=== PATIENT | female | born 1995 | race Caucasian/White ===

== ENCOUNTER 2016-10-15 01:51 | Emergency (ER) | payer OTHER ==
[2016-10-15] MEDS ORDERED: ALUMINUM/MAGNESIUM SUSP 30 ML UDC ONE (02:14)
[2016-10-15] MEDS ORDERED: LIDOCAINE HCL 2% VISC SOLN 20 ML UDC ONE (02:15)
[2016-10-15] MEDS ORDERED: SUCRALFATE 1 GM TAB ONE (02:48)
[2016-10-15] MEDS ORDERED: PANTOprazole SOD 40 MG TAB ONE (03:30)
--- NOTE | 2016-10-15 03:34 | EMERGENCY ROOM VISIT NOTE ---
History First contact with patient: 03:07 Chief Complaint: BACK PAIN Stated Complaint: LOWER THROAT PAIN AND UPPER BACK PAIN History of Present Illness The patient is a 21 year old female who presents to the Emergency Room with complaints of throat burning and discomfort for the past few hours after eating pizza. Patient tried tums and no improvement of symptoms. Patient denies dyspnea, fever, chills, cough, congestion, sore throat, headache, neck status, abdominal pain, vomiting, diarrhea. Review of Systems See HPI for pertinent positives & negatives. A total of 10 systems reviewed and were otherwise negative. Past Medical/Surgical History Asthma Social History Smoking Status: Never Smoker Smokeless Tobacco Use: No Alcohol Use: occasionally Drug Use: none Current/Historical Medications No Active Prescriptions or Reported Meds Allergies Coded Allergies: No Known Allergies (Unverified , 12/29/15) Physical Exam Physical Exam VITALS: Vitals are noted on the nurse's note and reviewed by myself. Vital signs stable. GENERAL: Pleasant female, in no acute distress, nondiaphoretic, well-developed well-nourished. SKIN: The skin was without rashes, erythema, edema, or bruising. There is no tenting of the skin. Capillary reflex less than 2 seconds. HEAD: Normocephalic atraumatic. EARS: External auditory canals clear, tympanic membranes pearly moreau without erythema or effusion bilaterally. EYES: Pupils equal round and reactive to light and accommodation. Conjunctivae without injection, sclerae without icterus. Extraocular movements intact. NOSE: Patent, turbinates without inflammation or discharge. MOUTH: Mucous membranes moist. Pharynx without erythema or exudate. Uvula midline. Airway patent. Tongue does not deviate. NECK: Supple without nuchal rigidity. No lymphadenopathy. No thyromegaly. Cervical spine is nontender. No JVD. HEART: Regular rate and rhythm without murmurs gallops or rubs. LUNGS: Clear to auscultation bilaterally without wheezes, rales or rhonchi. No dullness to percussion. No retractions or accessory muscle use. ABDOMEN: Positive bowel sounds x 4. Normal tympanic percussion. Soft, nontender, without masses or organomegaly. Salter sign negative. No guarding or rebound tenderness. MUSCULOSKELETAL: No muscle atrophy, erythema, or edema noted. NEURO: Patient was alert and oriented to person place and time. Normal sensation to light and sharp touch. No focal neurological deficits. Medical Decision & Procedures ED Course Prior records/ancillary studies reviewed. Triage Nursing notes reviewed. The patient's history was concerning for chest pain. Differential diagnosis: Etiologies such as cardiac ischemia, aortic dissection, pulmonary embolism, pneumonia, pneumothorax, musculoskeletal, infections, pericarditis, myocarditis , esophageal rupture, gastrointestinal, as well as others were entertained. Physical examination: As above. ER treatment provided: GI cocktail, Carafate, Protonix On reassessment the patient felt better. Diagnostic interpretation by me: The electrocardiogram was negative for pathologic change. Normal sinus, normal intervals, no acute ST-T wave changes. Impression normal sinus rhythm interpreted by myself The labs revealed negative carotid. Stable H&H. Negative hCG Imaging studies: Chest x-ray with no acute consolidation, pneumothorax or free air. Patient is wearing her cross. Interpreted by myself Exam and history seem consistent with reflux. Patient felt much better after being medicated as above. She is advised to take Protonix daily for next 2 weeks and to follow-up family care in a few days or here in the ER sooner for chest pain, difficulty breathing, black or blood in her stool, worsening signs or symptoms or as needed. Patient did not have acute abdomen on exam. She is well-appearing. Normal EKG. Negative pronator. Negative hCG. By the evaluation outlined above emergent etiologies such as cardiac ischemia, aortic dissection, pulmonary embolism, pneumonia, pneumothorax, infections, pericarditis, myocarditis, gastrointestinal, as well as others were deemed relatively unlikely. The pt informed about the findings as listed above. All questions were answered and pleased with the treatment. Return instructions were outlined and the patient was discharged in stable condition. Outpatient prescription management: Protonix Referral: The patient was referred back to primary care physician for follow-up in 2 to 3 days for a recheck of the current condition. Case reviewed with my attending. Medical Decision As above Impression Primary Impression: GERD (gastroesophageal reflux disease) Departure Information Dispostion Home / Self-Care Condition GOOD Prescriptions No Active Prescriptions or Reported Meds Referrals No Doctor, Assigned (PCP) Patient Instructions My [facility] Additional Instructions Protonix 40 m tablet daily for next 2 weeks. Take this on an empty stomach. Try Maalox or Zantac for breakthrough symptoms for reflux. Avoid large meals. Avoid acidic foods. Rest and drink plenty of fluids as tolerated. Continue current medications. Avoid strenuous activities and anything that worsens your pain. Resume normal activities once your symptoms resolve. Return to the ER immediately for worsening or persistent chest pain, abdominal pain, black or blood in your stools, vomiting, fevers, chest pains, difficulty breathing, worsening of your condition, or as needed. Follow up with your primary physician in 2-3 days for a recheck of your current condition. Problem Qualifiers Primary Impression: GERD (gastroesophageal reflux disease) Esophagitis presence: esophagitis presence not specified Qualified Codes: K21.9 - Gastro-esophageal reflux disease without esophagitis
[2016-10-15 05:17] LABS: PREG INTERNAL NEGATIVE QC NEG CLEAR BACKGROUND; PREG INTERNAL POSITIVE QC POS CONTROL LINE
[2016-10-15 05:19] LABS: ALB/GLOB RATIO 0.8 (0.9-2); ALKALINE PHOSPHATASE 106 U/L (45-117); ALT/SGPT 22 U/L (12-78); AST/SGOT 12 U/L (15-37); BLOOD UREA NITROGEN 13 mg/dl (7-18); BUN/CREATININE RATIO 14.1 (10-20); CALCIUM 8.7 mg/dl (8.5-10.1); CARBON DIOXIDE 24 mmol/L (21-32); CHLORIDE 106 mmol/L (98-107); GLUCOSE 109 mg/dl (70-99); POTASSIUM 3.6 mmol/L (3.5-5.1); SODIUM 140 mmol/L (136-145)
[2016-10-15 05:24] LABS: HEMATOCRIT 40.8 % (37-47); MEAN CELL VOLUME 90.3 fL (80-100); MEAN CORPUSCULAR HEMOGLOBIN 30.5 pg (25-34); MEAN CORPUSCULAR HGB CONC 33.8 g/dl (32-36); MEAN PLATELET VOLUME 10.7 fL (7.4-10.4); PLATELET COUNT 270 K/uL (130-400); RED BLOOD COUNT 4.52 M/uL (4.2-5.4); WHITE BLOOD COUNT 10.72 K/uL (4.8-10.8)
--- NOTE | 2016-10-15 06:36 | DIAGNOSTIC IMAGING REPORT ---
CHEST 2 VIEWS ROUTINE CLINICAL HISTORY: CHEST/BACK PAIN COMPARISON STUDY: No previous studies for comparison. FINDINGS: The cardiac and mediastinal contours are normal. There is no evidence of focal pulmonary consolidation. There is no evidence of failure. No pleural effusions are visualized.[ IMPRESSION: No active disease in the chest. Electronically signed by: Mustapha Vera M.D. 10/15/2016 6:35 AM Dictated Date/Time: 10/15/2016 6:34 AM
== END 2016-10-15 03:35 | disposition home or self-care (01) ==
LOC: C.EDB 01:52
DX: K21.9 Gastro-esophageal reflux disease without esophagitis (principal); J45.909 Unspecified asthma, uncomplicated

== ENCOUNTER 2016-12-31 01:30 | Emergency (ER) | payer OTHER ==
[~2016-12-31] VITALS: Ht 162.6 cm; Wt 111.1 kg
[2016-12-31 01:33] VITALS: TEMP 36.9; Ht 162.6 cm; Wt 111.1 kg
[2016-12-31] MEDS ORDERED: LIDOCAINE HCL 2% VISC SOLN 20 ML UDC PO STA (01:55)
[2016-12-31] MEDS ORDERED: ALUMINUM/MAGNESIUM SUSP 30 ML UDC PO STA (01:55)
[2016-12-31] MEDS ORDERED: ONDANSETRON 4MG OD TAB PO ONE (02:30)
[2016-12-31] MEDS ORDERED: ONDANSETRON HOME PACK 4MG OD TAB PO ONE (02:30)
[2016-12-31 02:45] VITALS: BP 145/78; PULSE 67; O2SAT 96
[2016-12-31] MEDS ORDERED: PANT40TA PO (02:51)
[2016-12-31] MEDS ORDERED: PANTOprazole SOD 40 MG TAB PO STA (02:55)
--- NOTE | 2016-12-31 03:52 | EMERGENCY ROOM VISIT NOTE ---
History First contact with patient: 01:39 Chief Complaint: VOMITING Stated Complaint: HEARTBURN,VOMITING Nursing Triage Summary: Pt took zoloft at midnight. Pt gets heartburn with medication, took OTC medication with no relief. Pt tried having water and ended up vomiting it back up. Continues to have heartburn. History of Present Illness The patient is a 21 year old female who presents to the Emergency Room with complaints of nausea and heartburn every time that she takes her Zoloft for the past month who has been taking Zantac and baking soda. Patient has a history of reflux. She is no longer on a PPI. No recent endoscopy or colonoscopy. Patient states every single time she swallows the pills she feels like she is getting bad heartburn. She has been taking this medication on an empty stomach. Patient states she seen her family care for this. Patient denies chest pain, dyspnea, fever, chills, abdominal pain, black or blood in her stool. She is tolerate by mouth fluids and food. Review of Systems See HPI for pertinent positives & negatives. A total of 10 systems reviewed and were otherwise negative. Past Medical/Surgical History GERD Social History Smoking Status: Never Smoker Smokeless Tobacco Use: No Alcohol Use: occasionally Drug Use: none Current/Historical Medications Scheduled Pantoprazole (Protonix), 40 MG PO DAILY Physical Exam Vital Signs Date Time Temp Pulse Resp B/P (MAP) Pulse Ox O2 Delivery O2 Flow Rate FiO2 12/31/16 02:45 67 18 145/78 96 Room Air 12/31/16 01:33 36.9 70 18 130/82 98 Room Air Pain Rating (0-10): 0 Physical Exam VITALS: Vitals are noted on the nurse's note and reviewed by myself. Vital signs stable. GENERAL: Pleasant female, in no acute distress, nondiaphoretic, well-developed well-nourished. SKIN: The skin was without rashes, erythema, edema, or bruising. There is no tenting of the skin. Capillary reflex less than 2 seconds. HEAD: Normocephalic atraumatic. EARS: External auditory canals clear, tympanic membranes pearly moreau without erythema or effusion bilaterally. EYES: Pupils equal round and reactive to light and accommodation. Conjunctivae without injection, sclerae without icterus. Extraocular movements intact. NOSE: Patent, turbinates without inflammation or discharge. MOUTH: Mucous membranes moist. Pharynx without erythema or exudate. Uvula midline. Airway patent. Tongue does not deviate. NECK: Supple without nuchal rigidity. No lymphadenopathy. No thyromegaly. Cervical spine is nontender. No JVD. HEART: Regular rate and rhythm without murmurs gallops or rubs. LUNGS: Clear to auscultation bilaterally without wheezes, rales or rhonchi. No dullness to percussion. No retractions or accessory muscle use. ABDOMEN: Positive bowel sounds x 4. Normal tympanic percussion. Soft, nontender, without masses or organomegaly. Salter sign negative. No guarding or rebound tenderness. MUSCULOSKELETAL: No muscle atrophy, erythema, or edema noted. NEURO: Patient was alert and oriented to person place and time. Normal sensation to light and sharp touch. No focal neurological deficits. Medical Decision & Procedures Medications Administered Medications (Trade) Dose Ordered Sig/Beverly Route Start Time Stop Time Status Last Admin Dose Admin Lidocaine HCl (Viscous Lidocaine 2% Soln) 10 ml NOW STAT PO 12/31/16 01:55 12/31/16 01:56 DC 12/31/16 02:36 10 ML Al Hydroxide/Mg Hydroxide (Maalox Susp) 30 ml NOW STAT PO 12/31/16 01:55 12/31/16 01:56 DC 12/31/16 02:36 30 ML Ondansetron HCl (Zofran Odt) 4 mg ONE ONCE PO 12/31/16 02:30 12/31/16 02:31 DC 12/31/16 02:21 4 MG Ondansetron HCl (ZOFRAN ODT 4MG Home Pack) 1 homepack UD ONCE PO 12/31/16 02:30 12/31/16 02:31 DC 12/31/16 02:59 1 HOMEPACK Pantoprazole Sodium (Protonix Tab) 40 mg NOW STAT PO 12/31/16 02:55 12/31/16 02:56 DC 12/31/16 02:59 40 MG ED Course Prior records/ancillary studies reviewed. Triage Nursing notes reviewed. The patient's history was concerning for feeling of burning sensation in her epigastric region after taking medication Differential diagnosis: Etiologies such as reflux, side effect to medication, anxiety, PUD, biliary pathology, pancreatitis, infections, as well as others were entertained. Physical examination findings: As above. ER treatment provided: Zofran, GI cocktail On reassessment the patient felt better. Diagnostics interpreted by me: Deferred Exam and history seem consistent with reflux. Patient did not have acute abdomen on exam. She is well-appearing. She does not want blood work I felt this is reasonable. She felt 100% after being medicated as above. She is advised take the Protonix for the next 2 weeks and states Zantac for breakthrough symptoms. She is advised not to use the baking soda anymore. She is advised to eat something when she takes her Zoloft. She is advised follow- up family care in a few days or here in the ER sooner for abdominal pain, black or blood in stool, worsening signs or symptoms or as needed. By the evaluation outlined above emergent etiologies such as PUD, biliary pathology, pancreatitis , infections, as well as others were deemed relatively unlikely. The pt informed about the findings as listed above. All questions were answered and pleased with the treatment. Return instructions were outlined and the patient was discharged in stable condition. Outpatient prescription management: Protonix Referral: The patient was referred back to their primary care physician for follow-up in 2 to 3 days for a recheck of the current condition. Case reviewed with my Attending. Medical Decision As above Medication Reconcilliation Current Medication List: was personally reviewed by me Blood Pressure Screening Patient's blood pressure: Normal blood pressure Impression Primary Impression: GERD (gastroesophageal reflux disease) Departure Information Dispostion Home / Self-Care Condition GOOD Prescriptions Pantoprazole (Protonix) 40 Mg Tab 40 MG PO DAILY for 14 Days, #14 TAB Prov: Ellen Smith .LUIS 12/31/16 Forms HOME CARE DOCUMENTATION FORM, IMPORTANT VISIT INFORMATION Patient Instructions GERD, My [facility] Additional Instructions Recommend that you do not take baking soda in the future. Make sure that you eat something when you take your medications. Protonix 40 m tablet daily for next 2 weeks. Take this on an empty stomach. Try Maalox or Zantac for breakthrough symptoms for reflux. Avoid large meals. Avoid acidic foods. Rest and drink plenty of fluids as tolerated. Continue current medications. Avoid strenuous activities and anything that worsens your pain. Resume normal activities once your symptoms resolve. Return to the ER immediately for worsening or persistent chest pain, abdominal pain, black or blood in your stools, vomiting, fevers, chest pains, difficulty breathing, worsening of your condition, or as needed. Follow up with your primary physician in 2-3 days for a recheck of your current condition. Problem Qualifiers Primary Impression: GERD (gastroesophageal reflux disease) Esophagitis presence: esophagitis presence not specified Qualified Codes: K21.9 - Gastro-esophageal reflux disease without esophagitis
== END 2016-12-31 03:04 | disposition home or self-care (01) ==
LOC: C.EDB 01:30 → C.EDC 03:04
DX: K21.9 Gastro-esophageal reflux disease without esophagitis (principal); Z79.899 Other long term (current) drug therapy